=== PATIENT | male | born 1995 | race Caucasian/White ===

== ENCOUNTER 2018-11-04 22:23 | Observation (INO) | payer MEDICAID ==
[2018-11-04] MEDS ORDERED: LORAZEPAM 2 MG/ML VIAL IV ONE (22:27)
[2018-11-04] MEDS ORDERED: 0.9 % SODIUM CHLORIDE 1000ML 1,000 ML IV SCH (22:30)
--- NOTE | 2018-11-04 22:32 | Emergency Department Record ---
History of Present Illness - General Chief Complaint: Chest Pain Time Seen by Provider: 11/04/18 22:26 Source: Patient Mode of Arrival: Ambulatory Limitations: No limitations - History of Present Illness Initial Comments: 23 yo male presents to ED for evaluation of chest pain that has progressively worsened, reports the pain has been there for "about a year". Patient reports history of alcohol abuse, reports that he stopped drinking yesterday. Patient reports that his creative developer told him that his symptoms were related to his lungs, recommended anti-inflammatories for his symptoms. Patient denies fevers , chills, or recent illness. Patient denies health problems at his baseline. MD Complaint: Chest pain Onset/Timin -: Year(s) Pain Location: Substernal Severity: Moderate Quality: Aching Consistency: Constant Improves With: Nothing Worsens With: Nothing Treatments Prior to Arrival: None - Related Data Home Medications Medication Instructions Recorded Confirmed Last Taken Metoprolol Succinate 25 mg PO DAILY 11/04/18 11/04/18 11/04/18 Paroxetine HCl [Paxil] 20 mg PO DAILY 11/04/18 11/04/18 11/04/18 Allergies Allergy/AdvReac Type Severity Reaction Status Date / Time No Known Drug Allergies Allergy Verified 11/04/18 22:35 Review of Systems Constitutional: Denies: Chills, Fever, Malaise, Night sweats Eyes: Denies: Eye discharge, Eye pain ENT: Denies: Congestion, Ear pain, Epistaxis Respiratory: Denies: Cough, Dyspnea Cardiovascular: Reports: Chest pain. Denies: Dyspnea on exertion Endocrine: Denies: Fatigue, Heat or cold intolerance Gastrointestinal: Denies: Abdominal pain, Nausea, Vomiting Genitourinary: Denies: Incontinence, Retention Musculoskeletal: Denies: Arthralgia, Back pain Skin: Denies: Bruising, Change in color, Change in hair/nails Neurological: Denies: Abnormal gait, Confusion, Headache, Seizure Psychiatric: Reports: Anxiety Hematological/Lymphatic: Denies: Anemia, Blood Clots Physical Exam - General General Appearance: Alert, Oriented x3, Cooperative, Moderate distress, Anxious , Other (Patient appears tremulous, anxious, c/w ETOH withdrawal) Limitations: No limitations - Head Head exam: Atraumatic, Normocephalic, Normal inspection Head exam detail: negative: Abrasion, Contusion, Villalta's sign, General tenderness, Hematoma, Laceration - Eye Eye exam: Normal appearance. negative: Conjunctival injection, Periorbital swelling, Periorbital tenderness, Scleral icterus - ENT Ear exam: negative: Auricular hematoma, Auricular trauma Nasal Exam: negative: Active bleeding, Discharge, Dried blood, Foreign body Mouth exam: negative: Drooling, Laceration, Muffled voice, Tongue elevation - Neck Neck exam: Normal inspection. negative: Meningismus, Tenderness - Respiratory Respiratory exam: Normal lung sounds bilaterally. negative: Rales, Respiratory distress, Rhonchi, Stridor - Cardiovascular Cardiovascular Exam: Regular rate, Normal rhythm, Normal heart sounds - GI/Abdominal GI/Abdominal exam: Soft. negative: Rebound, Rigid, Tenderness - Rectal Rectal exam: Deferred - exam: Deferred - Extremities Extremities exam: Normal inspection. negative: Pedal edema, Tenderness - Back Back exam: Denies: CVA tenderness (R), CVA tenderness (L) - Neurological Neurological exam: Alert, Normal gait, Oriented X3 - Psychiatric Psychiatric exam: Anxious - Skin Skin exam: Normal color. negative: Abrasion Type of lesion: negative: abrasion Course - Reevaluation(s) Reevaluation #1: 11/04/18 22:39 EKG: NSR 92 Indeterminate axis No acute ST-T wave changes Reevaluation #2: 11/04/18 23:13 Laboratory studies were reviewed and are grossly unremarkable except for the following: AST 148 ALT 193 Potassium 3.3. Will obtain CT imaging of the chest for further evaluation of the patient's chest pain symptoms. Reevaluation #3: 11/05/18 00:34 CT Chest: No acute process Hepatic steatosis Patient was updated on all results, will admit for alcohol withdrawal and likely 2-D echo in AM. Patient is in agreement with the plan of care as discussed. Reevaluation #4: 11/05/18 06:53 Case was discussed with Mary Mayfield NP, will accept admission at this time. Medical Decision Making - Lab Data Result diagrams: 11/04/18 22:30 11/04/18 22:30 Disposition Disposition: Admit Clinical Impression: Chest pain Qualifiers: Chest pain type: unspecified Qualified Code(s): R07.9 - Chest pain, unspecified Alcohol withdrawal Qualifiers: Complication of substance-induced condition: uncomplicated Qualified Code(s): F10.230 - Alcohol dependence with withdrawal, uncomplicated Disposition: Still a Patient at [facility] Decision to Admit: Admit from ER Decision to Admit Date: 11/05/18 Decision to Admit Time: 00:36 Condition: (2) Stable Time of Disposition: 00:36 Quality - Quality Measures Quality Measures: N/A - Blood Pressure Screening Does Patient Have Any of the Following: No Blood Pressure Classification: Pre-Hypertensive BP Reading Systolic Measurement: 129 Diastolic Measurement: 86 Screening for High Blood Pressure: < Pre-Hypertensive BP, F/U Documented > [ G8950] Pre-Hypertensive Follow-up Interventions: Referral to alternative/primary care provider.
[2018-11-04 22:54] LABS: BASO % 0.5 % (0-6); EOS % 0.5 % (0-6); GRAN % 67.8 % (47-80); HEMATOCRIT 47.9 % (42.0-52.0); HEMOGLOBIN 17.4 gm/dl (14.0-18.0); LYMPH % 24.1 % (16-45); MEAN CELL VOLUME 86.6 fl (81-97); MEAN CORPUSCULAR HEMOGLOBIN 31.5 pg (27-33); MEAN CORPUSCULAR HGB CONC 36.3 g/dl (32-36); MEAN PLATELET VOLUME 10.7 fl (7.4-10.4); MONO % 7.1 % (0-9); PLATELET COUNT 287 K/uL (130-400); RED BLOOD COUNT 5.53 M/uL (4.40-5.70); RED CELL DISTRIBUTION WIDTH 11.8 % (11.5-14.5)
[2018-11-04 22:57] LABS: BLOOD UREA NITROGEN 10 mg/dL (6-20); CREATININE 0.8 mg/dL (0.7-1.2); EST GLOMERULAR FILTRATION RATE > 60 mL/min
[2018-11-04 22:58] LABS: TOTAL PROTEIN 8.3 g/dL (6.6-8.7)
[2018-11-04 23:00] LABS: GLUCOSE,RANDOM 118 mg/dL (74-109)
[2018-11-04 23:03] LABS: ALB/GLOB RATIO 1.6 (1.1-1.8); ALBUMIN 5.1 g/dL (4.0-5.0); ALKALINE PHOSPHATASE 99 U/L (40-129); ALT/SGPT 193 U/L (<41); AST/SGOT 148 U/L (10.0-50.0)
[2018-11-05] MEDS ORDERED: KETOROLAC 30 MG/ML VIAL IVP ONE (00:17)
[2018-11-05] MEDS ORDERED: LORAZEPAM 2 MG/ML VIAL IV ONE (00:39)
[2018-11-05] MEDS: LORAZEPAM 2 MG/ML VIAL IV PRN ×8 (03:13→23:14)
[2018-11-05] MEDS: 0.9 % SODIUM CHLORIDE 1000ML 1,000 ML IV PRN ×2 (08:49→17:14)
[2018-11-05] MEDS: METOPROLOL SUCC 25 MG TAB.ER PO SCH (10:09)
--- NOTE | 2018-11-05 10:14 | History & Physical ---
History of Present Illness - Date of Service Date of Service for History & Physical: 11/06/18 - History of Present Illness Admitting Diagnosis: Alcohol withdrawal. Chest pain History of Present Illness: Uri Mckeon is a 23 y.o. M who presented to the ED with c/o worsening CP that has been going on x 1 year. Sees SHABBIR Dumas @ [facility]. Was told that his CP was d/t a "lung issue" and to take NSAIDS. Has been taking Motrin 600mg TID x several weeks. Drinks Fifth of hard liquor daily x 3 years. Reports that he had an ECHO 1.5 years ago and that he has had an upper scope in the past. Denies ever having had a stress test. ED Course: AST/ALT elevated EKG NSR CTA Chest: Negative for acute process 11/05/18 1030 Vitals: BP 118/64, HR 76, T98.1, RR 16, SpO2 99% on RA Lying in bed with lights off. Reports feeling tremors and agitated. Reports midsternal CP that radiates to left mid axillary line. Reports that he has vomited blood recently. Denies pain. Travel Screening - Travel/Exposure Within Last 30 Days Have you traveled within the last 30 days?: No - Travel/Exposure Within Last Year Have you traveled outside the [place] in the last year?: No - Additonal Travel Details Have you been exposed to anyone with a communicable illness?: No - Travel Symptoms Symptom Screening: None Review of Systems Reviewed: No additional complaints except as noted below Constitutional: Denies: Chills, Fever, Malaise, Night sweats Eyes: Denies: Eye discharge, Eye pain ENT: Denies: Congestion, Ear pain, Epistaxis Respiratory: Denies: Cough, Dyspnea Cardiovascular: Reports: Chest pain. Denies: Dyspnea on exertion Endocrine: Denies: Fatigue, Heat or cold intolerance Gastrointestinal: Denies: Abdominal pain, Nausea, Vomiting Genitourinary: Denies: Incontinence, Retention Musculoskeletal: Denies: Arthralgia, Back pain Skin: Denies: Bruising, Change in color, Change in hair/nails Neurological: Denies: Abnormal gait, Confusion, Headache, Seizure Psychiatric: Reports: Anxiety Hematological/Lymphatic: Denies: Anemia, Blood Clots Past Medical History - SOCIAL HISTORY Smoking Status: Never smoker Alcohol Use: Heavy Drug Use Detail:: Marijuana - RESPIRATORY Hx Respiratory Disorders: No - CARDIOVASCULAR Hx Cardio Disorders: Yes Hx Hypertension: Yes - NEURO Hx Neuro Disorders: Yes Hx Dizziness: Yes - GI Hx GI Disorders: Yes Hx Abdominal Pain: Yes Hx Liver Disease: Yes - Hx Genitourinary Disorders: No - ENDOCRINE Hx Endocrine Disorders: No - MUSCULOSKELETAL Hx Musculoskeletal Disorders: No - PSYCH Hx Psych Problems: Yes Hx Anxiety: Yes Hx Depression: Yes - HEMATOLOGY/ONCOLOGY Hx Hematology/Oncology Disorders: No Family Medical History Any Significant Family History?: Yes Hx Heart Disease: Father, Grandparents Hx Seizures: Father H&P Meds/Allergies - Allergies Allergies: Allergies Allergy/AdvReac Type Severity Reaction Status Date / Time No Known Drug Allergies Allergy Verified 11/04/18 22:35 - Home Medications Home Medications Medication Instructions Recorded Confirmed Last Taken Metoprolol Succinate 25 mg PO DAILY 11/04/18 11/04/18 11/04/18 Paroxetine HCl [Paxil] 20 mg PO DAILY 11/04/18 11/04/18 11/04/18 - Active Medications Active Medications: Current Medications Sodium Chloride () 1,000 mls @ 125 mls/hr IV .Q8H PRN PRN Reason: LARGE VOLUME IV Last Admin: 11/05/18 08:49 Dose: 125 mls/hr Lorazepam (Ativan) 2 mg IV Q2H PRN PRN Reason: ANXIETY Last Admin: 11/05/18 08:43 Dose: 2 mg Metoprolol Succinate (Toprol Xl) 25 mg PO DAILY [facility] Last Admin: 11/05/18 10:09 Dose: 25 mg Paroxetine HCl (Paxil) 20 mg PO QHS [facility] Physical Exam - Vital Signs Vital Signs: Vital Signs - Last 24 Hrs Temp Pulse Pulse Resp BP BP Pulse Ox 11/05/18 04:00 78 18 130/91 95 11/05/18 01:40 98.3 F 81 20 141/87 96 11/05/18 01:10 91 H 18 129/86 98 11/05/18 00:17 91 H 18 129/86 95 11/04/18 23:18 98.6 F 89 18 127/87 95 11/04/18 22:52 88 22 139/87 95 11/04/18 22:27 97.9 F 113 H 24 146/102 95 - General General Appearance: Alert, Oriented x3, Cooperative, Mild distress, Anxious, Other (Patient appears tremulous, anxious, c/w ETOH withdrawal) Limitations: No limitations - Head Head exam: Atraumatic, Normocephalic, Normal inspection Head exam detail: negative: Abrasion, Contusion, Villalta's sign, General tenderness, Hematoma, Laceration - Eye Eye exam: Normal appearance. negative: Conjunctival injection, Periorbital swelling, Periorbital tenderness, Scleral icterus - ENT Ear exam: negative: Auricular hematoma, Auricular trauma Nasal Exam: negative: Active bleeding, Discharge, Dried blood, Foreign body Mouth exam: negative: Drooling, Laceration, Muffled voice, Tongue elevation - Neck Neck exam: Normal inspection. negative: Meningismus, Tenderness - Respiratory Respiratory exam: Normal lung sounds bilaterally. negative: Rales, Respiratory distress, Rhonchi, Stridor - Cardiovascular Cardiovascular Exam: Regular rate, Normal rhythm, Normal heart sounds - GI/Abdominal GI/Abdominal exam: Soft. negative: Rebound, Rigid, Tenderness - Rectal Rectal exam: Deferred - exam: Deferred - Extremities Extremities exam: Normal inspection. negative: Pedal edema, Tenderness - Back Back exam: Denies: CVA tenderness (R), CVA tenderness (L) - Neurological Neurological exam: Alert, Normal gait, Oriented X3 - Psychiatric Psychiatric exam: Anxious - Skin Skin exam: Normal color. negative: Abrasion Type of lesion: negative: abrasion Results - Labs Result Diagrams: 11/04/18 22:30 11/04/18 22:30 Labs Last 24 Hours: Laboratory Results - last 24 hr 11/04/18 11/04/18 22:30 22:30 WBC 8.0 RBC 5.53 Hgb 17.4 Hct 47.9 MCV 86.6 MCH 31.5 MCHC 36.3 H RDW 11.8 Plt Count 287 MPV 10.7 H Gran % 67.8 Lymphocytes % 24.1 Monocytes % 7.1 Eosinophils % 0.5 Basophils % 0.5 Sodium 139 Potassium 3.3 L Chloride 98 Carbon Dioxide 22.0 Anion Gap 19.0 H BUN 10 Creatinine 0.8 Estimated GFR > 60 Random Glucose 118 H Calcium 9.7 Total Bilirubin 1.00 AST 148 H ALT 193 H Alkaline Phosphatase 99 Troponin T < 0.010 Total Protein 8.3 Albumin 5.1 H Globulin 3.2 Albumin/Globulin Ratio 1.6 VTE H&P Assessment - Risk for VTE Risk for VTE: No Risk Level: Low Risk Assessment Date: 11/05/18 Risk Assessment Time: 11:00 VTE Orders Placed or Will Be Placed: Yes Plan - Detailed Diagnosis and Plan (1) Chest pain Current Visit: Yes Status: Acute Qualifiers: Chest pain type: unspecified Qualified Code(s): R07.9 - Chest pain, unspecified Base Code: R07.9 - CHEST PAIN, UNSPECIFIED Comment: 11/05/18 -Had normal ECHO 1.5 years ago, follows with [facility] -EKG NSR -Likely GI r/t NSAID overuse and Alcohol abuse AEB recent hematemesis -Ordered 2D echo -IV Protonix 40mg BID, Carafate 1 gm QID for possibility of Ulcers (2) Alcohol withdrawal Current Visit: Yes Status: Acute Qualifiers: Complication of substance-induced condition: uncomplicated Qualified Code(s ): F10.230 - Alcohol dependence with withdrawal, uncomplicated Base Code: F10.239 - ALCOHOL DEPENDENCE WITH WITHDRAWAL, UNSPECIFIED Comment: 11/05/18 -Drinks Fifth hard liquor daily x 3 years -Liver enzymes elevated, AST 148/ALT 193 -CIWA score 10-11 -Added Librium 50mg q. 8 PRN -IVF and vitamins ordered (3) Full code status Current Visit: Yes Status: Acute Base Code: Z78.9 - OTHER SPECIFIED HEALTH STATUS Comment: 11/05/18 -Full code this admission (4) DVT prophylaxis Current Visit: Yes Status: Acute Base Code: [id number] - Comment: 11/05/18 -Low risk -Nursing to encourage ambulation
[2018-11-05] MEDS: PANTOPRAZOLE SODIUM IV 40 MG VIAL IVP SCH ×2 (10:30→23:03)
[2018-11-05] MEDS: SUCRALFATE 1 G/10 ML UD PO SCH ×4 (10:47→23:03)
--- NOTE | 2018-11-05 13:14 | CT ANGIOGRAM REPORT ---
EXAM: CT ANGIOGRAM OF THE CHEST WITH CONTRAST HISTORY: LEFT SIDED CHEST PAIN AND SHORTNESS OF BREATH FOR TWO MONTHS. TECHNIQUE: Routine CTA examination of the chest was performed with 90 ml of Omnipaque 350 utilized. Maximum intensity projection reformatted images are generated in multiple planes and reviewed. FINDINGS: Evaluation of the peripheral pulmonary arteries is limited by suboptimal opacification. No large central pulmonary embolus is seen. The heart is not enlarged. The aortic root at the level of the sinuses of Valsalva measures 3.9 x 3.8 cm. The sinotubular junction measures 2.3 cm in [id number] and the ascending thoracic aorta at the level of the right main pulmonary artery measures 3 cm in diameter. No thoracic aortic dissection. There is likely a small amount of residual thymic tissue. No mediastinal or hilar mass/ lymphadenopathy is seen. The central airways are clear. There is minor dependent atelectasis within the lower lobes. There is linear scarring versus atelectasis within the medial segment of the right middle lobe. The lungs and pleural spaces are otherwise clear. There is diffuse decreased density of the liver relative to the spleen consistent with steatosis. The adrenal glands are not enlarged though the inferior aspect of the left adrenal gland is not entirely included on examination. No lytic or blastic bone lesion. IMPRESSION: 1. NO EVIDENCE OF CENTRAL PULMONARY EMBOLISM. EVALUATION OF THE PERIPHERAL PULMONARY ARTERIES IS SUBOPTIMAL DUE TO POOR CONTRAST OPACIFICATION. 2. NO ANEURYSMAL DILATATION OF THE THORACIC AORTA NOR DISSECTION THOUGH THE AORTIC ROOT IS MILDLY ECTATIC MEASURING 3.9 CM IN DIAMETER. 3. MILD DEPENDENT ATELECTASIS IN EACH LUNG BASE. LINEAR SCARRING VERSUS ATELECTASIS WITHIN THE RIGHT MIDDLE LOBE. 4. HEPATIC STEATOSIS. JOB NUMBER: [id number] [facility]
[2018-11-05] MEDS: NICOTINE14 MG/24 HOUR PATCH TD SCH (18:47)
[2018-11-05] MEDS: CHLORDIAZEPOXIDE 25 MG CAPSULE PO PRN (20:24)
[2018-11-05] MEDS ORDERED: PAROXETINE HCL 10 MG TABLET PO SCH (22:00)
[2018-11-06] MEDS: LORAZEPAM 2 MG/ML VIAL IV PRN ×4 (01:48→09:28)
[2018-11-06] MEDS: 0.9 % SODIUM CHLORIDE 1000ML 1,000 ML IV PRN ×2 (01:52→09:35)
[2018-11-06] MEDS: CHLORDIAZEPOXIDE 25 MG CAPSULE PO PRN ×2 (05:08→12:07)
[2018-11-06] MEDS ORDERED: ONDANSETRON HCL IV 4 MG/2 ML VIAL IVP ONE (05:11)
[2018-11-06] MEDS: SUCRALFATE 1 G/10 ML UD PO SCH ×2 (09:28→14:08)
[2018-11-06] MEDS: NICOTINE14 MG/24 HOUR PATCH TD SCH (09:28)
[2018-11-06] MEDS: PANTOPRAZOLE SODIUM IV 40 MG VIAL IVP SCH (09:28)
[2018-11-06] MEDS: METOPROLOL SUCC 25 MG TAB.ER PO SCH (09:28)
--- NOTE | 2018-11-06 17:19 | Discharge Summary ---
Providers Discharge Summary Date: 11/06/18 Date of admission: 11/06/18 05:43 Attending physician: BRUCE COREA Physical Exam - Vital Signs Vital Signs: Vital Signs - Last 24 Hrs Temp Pulse Resp BP BP Pulse Ox 11/06/18 12:00 97.4 F L 65 16 122/79 97 11/06/18 10:00 97.3 F L 66 16 119/77 97 11/06/18 07:52 20 11/06/18 05:07 97.9 F 78 20 168/109 98 11/06/18 04:30 98.0 F 80 18 135/84 99 11/05/18 23:57 97.9 F 60 18 132/86 96 11/05/18 20:00 98.3 F 75 18 136/84 95 - General General Appearance: Alert, Oriented x3, Cooperative, No acute distress, Other Limitations: No limitations - Head Head exam: Atraumatic, Normocephalic, Normal inspection Head exam detail: negative: Abrasion, Contusion, Villalta's sign, General tenderness, Hematoma, Laceration - Eye Eye exam: Normal appearance. negative: Conjunctival injection, Periorbital swelling, Periorbital tenderness, Scleral icterus - ENT Ear exam: negative: Auricular hematoma, Auricular trauma Nasal Exam: negative: Active bleeding, Discharge, Dried blood, Foreign body Mouth exam: negative: Drooling, Laceration, Muffled voice, Tongue elevation - Neck Neck exam: Normal inspection. negative: Meningismus, Tenderness - Respiratory Respiratory exam: Normal lung sounds bilaterally. negative: Rales, Respiratory distress, Rhonchi, Stridor - Cardiovascular Cardiovascular Exam: Regular rate - GI/Abdominal GI/Abdominal exam: Soft. negative: Rebound, Rigid, Tenderness - Rectal Rectal exam: Deferred - exam: Deferred - Extremities Extremities exam: Normal inspection. negative: Pedal edema, Tenderness - Back Back exam: Denies: CVA tenderness (R), CVA tenderness (L) - Neurological Neurological exam: Alert, Normal gait, Oriented X3 - Psychiatric Psychiatric exam: Anxious - Skin Skin exam: Normal color. negative: Abrasion Type of lesion: negative: abrasion Hospitalization - Hospitalization Admission Diagnosis: Alcohol withdrawal. Chest pain - Problem List/Discharge Diagnosis (1) Chest pain Status: Acute Discharge Diagnosis: Chest pain type: unspecified Qualified Code(s): R07.9 - Chest pain, unspecified Base Code: R07.9 - CHEST PAIN, UNSPECIFIED Comment: 11/06/18 -2D Echo completed -Chest discomfort likely GI -Pt to f/u in office for outpatient testing, consider EGD -Omeprazole 40mg PO BID -Carafate 1gm PO QID -Instructed to avoid NSAIDS (2) Alcohol withdrawal Status: Acute Discharge Diagnosis: Complication of substance-induced condition: uncomplicated Qualified Code(s ): F10.230 - Alcohol dependence with withdrawal, uncomplicated Base Code: F10.239 - ALCOHOL DEPENDENCE WITH WITHDRAWAL, UNSPECIFIED Comment: 11/06/18 -Drinks Fifth hard liquor daily x 3 years -Liver enzymes elevated, AST 148/ALT 193 -CIWA score 5 (3) Full code status Status: Acute Base Code: Z78.9 - OTHER SPECIFIED HEALTH STATUS Comment: 11/06 -Full code this admission (4) DVT prophylaxis Status: Acute Base Code: [id number] - Comment: 11/06/18 -Low risk -Nursing to encourage ambulation - Hospitalization Course Disposition: Home, Self-Care Hospital Course: Uri Mckeon is a 23 y.o. M who presented to the ED with c/o worsening CP that has been going on x 1 year. Sees SHABBIR Dumas @ [facility]. Was told that his CP was d/t a "lung issue" and to take NSAIDS. Has been taking Motrin 600mg TID x several weeks. Drinks Fifth of hard liquor daily x 3 years. Reports that he had an ECHO 1.5 years ago and that he has had an upper scope in the past. Denies ever having had a stress test. ED Course: AST/ALT elevated EKG NSR CTA Chest: Negative for acute process 11/05/18 1030 Vitals: BP 118/64, HR 76, T98.1, RR 16, SpO2 99% on RA Lying in bed with lights off. Reports feeling tremors and agitated. Reports midsternal CP that radiates to left mid axillary line. Reports that he has vomited blood recently. Denies pain. 11/06/18 1645 Vitals: T 97.4, HR 65, BP 122/79, RR 16, SpO2 97% RA Lying in bed. Arouses easily when spoken to. Reports that he is ready to go home. Doesn't feel agitated anymore. Reports chest pain is very slightly improved. Verbalizes understanding of f/u in office for further testing. Procedures: Imaging and X-Rays 11/04/18 23:12 CHEST CTA w contrast [CTA] Stat Cardiology Procedures 11/04/18 22:27 EKG NOW 11/05/18 08:54 Echo W/CF & Cardiac Doppler NOW Abnormal Labs: Abnormal Lab Results 11/04/18 11/04/18 Range/Units 22:30 22:30 MCHC 36.3 H (32-36) g/dl MPV 10.7 H (7.4-10.4) fl Potassium 3.3 L (3.4-4.5) mmol/L Anion Gap 19.0 H (7-16) Random Glucose 118 H (74-109) mg/dL AST 148 H (10.0-50.0) U/L ALT 193 H (<41) U/L Albumin 5.1 H (4.0-5.0) g/dL Condition at Discharge: (2) Stable Discharge Medications - Discharge Medications Prescriptions: Omeprazole 40 mg PO BID 30 Days #60 capsule. Sucralfate [Carafate] 1 g PO QID 10 Days #40 ud Home Medications: Ambulatory Orders Metoprolol Succinate 25 mg PO DAILY 11/04/18 [Last Taken 11/04/18] Paroxetine HCl [Paxil] 20 mg PO DAILY 11/04/18 [Last Taken 11/04/18] Omeprazole 40 mg PO BID 30 Days #60 capsule. 11/06/18 [Last Taken Unknown] Sucralfate [Carafate] 1 g PO QID 10 Days #40 ud 11/06/18 [Last Taken Unknown] Discharge Plan - Discharge Instructions Activity at Discharge: Increase Activity as Tolerated Diet at Discharge: Advance to Usual Diet Instructions: Chest Pain (DC), Alcohol Withdrawal (DC), Alcohol Dependence (GEN ), Alcohol Use Disorder (DC) Additional Instructions: Appointment with Mary Mayfield at [facility] on November 10 at 9:40AM Resume home meds Diet and activity as tolerated. Return to the ED if getting worse Do not drink alcohol Quality Measures - Quality Measures Quality Measures: Documentation of Current Medications in Medical Record, Screening for High Blood Pressure and F/U Documented - Current Medications Quality Measure: Measure #130: Documentation of Current Medications Documentation of Current Medications: <Current Medications Documented/Reviewed> [G8427] - Blood Pressure Screening Quality Measure: Screening for High Blood Pressure and Follow-Up Documented Does Patient Have Any of the Following: No Blood Pressure Classification: Normal BP Reading Systolic Measurement: 118 Diastolic Measurement: 64 Screening for High Blood Pressure: < Normal BP, F/U Not Required > [G8783] - Elder Abuse Suspicion Index EASI Reference Information: Gabbie DRAKE, Obie C, Tio Mccauley, Jessica Moctezuma.Development and validation of a tool to assist physicians identification of elder abuse: The Elder Abuse Suspicion Index (EASI ). Journal of Elder Abuse and Neglect, 2008; 20 (3): 276-300.
== END 2018-11-06 17:45 | disposition home or self-care (01) ==
LOC: ER 22:23 → MEDSURG 11-05 01:05 → INTOOBSV 11-05 01:05 → UNDOADMOB 11-05 01:05 → MEDSURG 11-05 01:20 → UNDOADMOB 11-06 05:43 → UNDODISOB 11-06 17:45
PROVIDERS: ADMIT Internal Medicine; ATTEND Internal Medicine
DX: F10.239 Alcohol dependence with withdrawal, unspecified (principal); I10 Essential (primary) hypertension; K76.9 Liver disease, unspecified; F12.90 Cannabis use, unspecified, uncomplicated
CPT/HCPCS: 99285 ×2; 96376; 96374; 96375; 85025; 80053; 84484; 71275; 93005; 93010; 93306; G0378 ×2; Q9967; J1885; J2405; J2060 ×3; 99220; C9113; J7030

== ENCOUNTER 2018-12-25 08:49 | Day surgery (SDC) | payer MEDICAID ==
[2018-12-25] MEDS ORDERED: LIDOCAINE 2% MDV (20MG/ML) 20ML VIAL IV ONE (08:50)
[2018-12-25] MEDS ORDERED: PROPOFOL 10 MG/ML VIAL IV ONE (08:50)
[2018-12-25] MEDS ORDERED: FENTANYL PF 100MCG/2ML VIAL IV ONE (08:50)
--- NOTE | 2018-12-28 08:11 | Operative Note ---
SURGEON: Neftaly Genao MD OPERATION: 1. ESOPHAGOGASTRODUODENOSCOPY. 2. COLONOSCOPY. INDICATIONS: This is a 23-year-old man with history of right upper quadrant abdominal pain with no history of diarrhea who presented for both esophagogastroduodenoscopy and colonoscopy. POSTOPERATIVE DIAGNOSES: 1. Grade 2 ulcerative esophagitis. 2. Mild colon. ANESTHESIA: Sedation is per Anesthesia. Pulse oximetry was monitored throughout the procedure to maintain O2 saturation of 90% or greater. Supplemental oxygen was administered via nasal cannula. Cardiac and vital signs were monitored throughout the duration of the procedure, and they were stable. The procedures of esophagogastroduodenoscopy and colonoscopy and risks and benefits of the procedures, including the risk of bleeding and perforation, among others, were explained to the patient who voiced understanding and agreed to have the procedures done. Physical examination was performed, and the patient was found stable for sedation. PROCEDURE: The patient was placed in the left lateral position. Sedation was initiated. A plastic bite block was inserted into the oral cavity. The Olympus [id number] gastroscope was introduced into the oral cavity and advanced to the proximal esophagus without difficulty. The esophageal mucosa was carefully examined upon introduction of the gastroscope. The proximal and mid esophageal mucosa appeared normal. In the distal esophagus, there was grade 2 esophagitis with no mass lesions noted. The gastroscope was then advanced into the stomach, and surveillance of the stomach revealed normal gastric fundus, body, and antrum. The gastroscope was subsequently advanced to the descending duodenum without difficulty. The duodenal bulb and descending duodenum appeared normal. The gastroscope was then withdrawn into the stomach and retroflexion was performed. There were no other lesions noted. The gastroscope was then straightened and withdrawn while carefully examining the gastric and esophageal mucosa. No other lesions noted. Multiple distal esophageal biopsies were obtained. The patient remained with stable vital signs and was repositioned for colonoscopy. A digital rectal exam was performed and showed some mild external hemorrhoids with no palpable rectal masses. An Olympus [id number]-180AL colonoscope was then inserted into the rectum under direct visualization. It was advanced to the cecum without difficulty. The ileocecal valve and appendiceal orifice were identified and photographed. The colonic mucosa was carefully examined upon introduction of the colonoscope. There were no lesions noted. The ileocecal valve was intubated and terminal ileal mucosa was inspected for about 10 cm and it appeared normal. The colonoscope was then withdrawn while carefully examining the colonic mucosal surfaces. No other lesions were noted. In the rectum, retroflexion was performed and it was normal. The colonoscope was then withdrawn and the procedure was terminated. The patient tolerated the procedure well without any immediate complications. The patient remained with stable vital signs and was transferred to the recovery room. RECOMMENDATIONS: 1. I will start him on omeprazole 20 mg daily. 2. I will see him back in the office as needed. Thank you for allowing me to participate in the care of your patient. CC: OC Kirby
== END 2018-12-25 10:45 | disposition home or self-care (01) ==
LOC: HOP 08:49
PROVIDERS: ATTEND Internal Medicine Gastroenterology
DX: Z12.11 Encounter for screening for malignant neoplasm of colon (principal); K21.0 Gastro-esophageal reflux disease with esophagitis; Z87.898 Personal history of other specified conditions
CPT/HCPCS: 00813; 43239; G0121

== ENCOUNTER 2019-02-22 08:51 | Emergency (ER) | payer MEDICAID ==
[2019-02-22] MEDS ORDERED: ORPHENADRINE CITRATE 60MG/2ML VIAL IM ONE (08:56)
[2019-02-22] MEDS ORDERED: KETOROLAC 30 MG/ML VIAL IM ONE (08:56)
[2019-02-22] MEDS ORDERED: ACETAMINOPHEN 500 MG TABLET PO ONE (08:57)
--- NOTE | 2019-02-22 09:02 | Emergency Department Record ---
History of Present Illness - General Chief Complaint: Back Pain/Injury Stated Complaint: BACK INJURY Time Seen by Provider: 02/22/19 08:56 Source: Patient Mode of Arrival: Ambulatory Limitations: No limitations - History of Present Illness Initial Comments: 23 yo male presents from his place of employment after injuring his back. He was removing a semi truck tire. He first used a sledge hammer then was pulling and kicking the tire. He felt a sharp pain in the right lower back at 7:30am. The pain has continued. It is sharp. He has some pain down the right leg. No numbness or tingling. No weakness. No history of back disease in the past or lumbar disc disease. MD Complaint: Back injury -: Hour(s) (1.5) Place: Work Radiation: Right leg Severity: Moderate Quality: Stabbing Consistency: Constant Improves With: Immobilization Worsens With: Movement, Walking Context: Bending, Turning/twisting, While lifting, Other (Removing a semi truck tire) Associated Symptoms: Denies other symptoms - Related Data Previous Rx's Medication Instructions Recorded Cyclobenzaprine HCl [Flexeril] 10 mg PO TID #20 tablet 02/22/19 Ibuprofen [Motrin 600Mg] 600 mg PO Q6H #20 tablet 02/22/19 Allergies Allergy/AdvReac Type Severity Reaction Status Date / Time No Known Drug Allergies Allergy Verified 02/22/19 09:01 Review of Systems Constitutional: Denies: Chills, Fever, Malaise, Weakness Eyes: Denies: Eye discharge ENT: Denies: Congestion, Throat pain Respiratory: Denies: Cough Cardiovascular: Denies: Chest pain, Syncope Endocrine: Denies: Fatigue Gastrointestinal: Denies: Abdominal pain, Diarrhea, Nausea, Vomiting Genitourinary: Denies: Dysuria, Frequency, Hematuria, Urgency Musculoskeletal: Reports: Back pain, Myalgia. Denies: Arthralgia Skin: Denies: Bruising, Change in color, Rash Neurological: Denies: Abnormal gait, Headache, Numbness, Tingling, Tremors, Weakness Psychiatric: Denies: Anxiety Hematological/Lymphatic: Denies: Easy bleeding, Easy bruising Past Medical History - SOCIAL HISTORY Smoking Status: Former smoker - RESPIRATORY Hx Respiratory Disorders: No - CARDIOVASCULAR Hx Cardio Disorders: Yes Hx Hypertension: Yes Hx Palpitations: Yes - NEURO Hx Neuro Disorders: Yes Hx Dizziness: Yes - GI Hx GI Disorders: Yes Hx Abdominal Pain: Yes (left side) Hx Liver Disease: Yes Comment:: vomitted large amount of blood about 1 yr ago (ER visit) - Hx Genitourinary Disorders: No - ENDOCRINE Hx Endocrine Disorders: No - MUSCULOSKELETAL Hx Musculoskeletal Disorders: No - PSYCH Hx Psych Problems: Yes Hx Anxiety: Yes Hx Depression: Yes - HEMATOLOGY/ONCOLOGY Hx Hematology/Oncology Disorders: No Family Medical History Hx Heart Disease: Father, Grandparents Hx Seizures: Father Physical Exam - General General Appearance: Alert, Oriented x3, Cooperative, No acute distress Limitations: No limitations - Head Head exam: Atraumatic, Normal inspection - Eye Eye exam: Normal appearance. negative: Conjunctival injection - ENT ENT exam: Normal exam, Mucous membranes moist Ear exam: Normal external inspection Nasal Exam: Normal inspection Mouth exam: Normal external inspection - Neck Neck exam: Normal inspection - Respiratory Respiratory exam: Normal lung sounds bilaterally. negative: Respiratory distress - Cardiovascular Cardiovascular Exam: Regular rate, Normal rhythm, Normal heart sounds - GI/Abdominal GI/Abdominal exam: Soft. negative: Tenderness - Rectal Rectal exam: Deferred - exam: Deferred - Extremities Extremities exam: Normal inspection, Full ROM, Normal capillary refill. negative: Calf tenderness, Pedal edema, Tenderness - Back Back exam: Reports: Normal inspection, CVA tenderness (R), Muscle spasm, Paraspinal tenderness, Tenderness Image of Body Front/Back: 1 - tender R paraspinal, no rash, no step off, Reflexes symmetric patellar R and L, sensation is intact, No weakness of leg flexion at the hip or knee, foot flexion and extension intact - Neurological Neurological exam: Alert, Normal gait, Oriented X3, Reflexes normal. negative: Altered, Motor sensory deficit - Psychiatric Psychiatric exam: Normal affect, Normal mood - Skin Skin exam: Dry, Intact, Normal color, Warm Course - Reevaluation(s) Reevaluation #1: 02/22/19 09:35 The XR was reviewed No acute bony abnormality We discuss that pain down the leg can be a disc issue He is to call his PCP for follow up or his work health since it occurred at work If the pain continues I recommend to be seen for possible further work up We discussed signs and symptoms that should prompt him to immediately return as well (weak, numb, changes in bowel or bladder function) Disposition Disposition: Discharge Clinical Impression: Lumbar spine strain Qualifiers: Encounter type: initial encounter Qualified Code(s): S39.012A - Strain of muscle, fascia and tendon of lower back, initial encounter Sciatica Qualifiers: Laterality: right Qualified Code(s): M54.31 - Sciatica, right side Disposition: Home, Self-Care Condition: (1) Good Instructions: Low Back Strain (ED) Additional Instructions: Call your doctor for the next available follow up appointment Review this ER visit and the tests performed with your family doctor Return to the ER for a recheck if worse, any new concerns or questions If you pain down the leg continues your doctor may need to consider and MRI for a bulging disc in your back Take the prescriptions provided as directed Prescriptions: Cyclobenzaprine HCl [Flexeril] 10 mg PO TID #20 tablet Ibuprofen [Motrin 600Mg] 600 mg PO Q6H #20 tablet Forms: Patient Portal Access Time of Disposition: 09:37 Quality - Quality Measures Quality Measures: N/A - Blood Pressure Screening Does Patient Have Any of the Following: No Blood Pressure Classification: Hypertensive Reading Systolic Measurement: 132 Diastolic Measurement: 103 Screening for High Blood Pressure: < Pre-Hypertensive BP, F/U Documented > [G8950] Pre-Hypertensive Follow-up Interventions: Referral to alternative/primary care provider.
--- NOTE | 2019-02-24 07:56 | RADIOLOGY REPORT ---
EXAM: LUMBAR SPINE WITH OBLIQUE VIEWS HISTORY: SUDDEN ONSET OF LOWER BACK PAIN RADIATING INTO RIGHT LOWER EXTREMITY BEGINNING DURING PHYSICAL ACTIVITY. TECHNIQUE: AP, lateral and both oblique views of the lumbar spine are obtained as well as a spot lateral view of the lumbosacral junction. Comparison: CT of the abdomen with contrast dated 02/11/19. FINDINGS: There is normal bone mineralization. Five non-rib bearing lumbar type vertebra are present. The lower thoracic and upper lumbar portions of the spine are tilted leftward. This may just relate to patient positioning. The vertebral bodies are otherwise normal in alignment and height. No acute fracture. No lytic or blastic bone lesion. Minor degenerative end plate changes are scattered within the lower thoracic and lumbar portions of the spine. There is questionable minor disk space narrowing at the L3-L4 level. The facet joints are grossly maintained. IMPRESSION: 1. NO ACUTE FRACTURE NOR SUBLUXATION. 2. QUESTIONABLE MINIMAL DISK SPACE NARROWING AT THE L3-L4 LEVEL. MINOR DEGENERATIVE END PLATE CHANGES SCATTERED THROUGHOUT THE VISUALIZED SPINE. JOB NUMBER: [id number] MTDD
== END 2019-02-22 10:03 | disposition home or self-care (01) ==
LOC: ER 08:51
DX: S39.012A Strain of muscle, fascia and tendon of lower back, initial encounter (principal); M54.41 Lumbago with sciatica, right side; X50.0XXA Overexertion from strenuous movement or load, initial encounter; Y92.89 Other specified places as the place of occurrence of the external cause; Y99.0 Civilian activity done for income or pay; I10 Essential (primary) hypertension; Z87.891 Personal history of nicotine dependence
CPT/HCPCS: 72110; 96372; 99283; 99284; J1885; J2360

== ENCOUNTER 2019-04-09 19:48 | Emergency (ER) | payer MEDICAID ==
[2019-04-09] MEDS ORDERED: HYDROCODONE/APAP 7.5/325MG TABLET PO ONE (19:59)
[2019-04-09] MEDS ORDERED: IBUPROFEN 600 MG TABLET PO ONE (19:59)
[2019-04-09] MEDS ORDERED: Diph,Pert(Acell),Tet Vac 0.5 ML SYR IM ONE (19:59)
[2019-04-09] MEDS ORDERED: CEPHALEXIN 500 MG CAPSULE PO STA (20:01)
--- NOTE | 2019-04-09 20:06 | Emergency Department Record ---
History of Present Illness - General Chief complaint: Extremity Problem Time Seen by Provider: 04/09/19 19:55 Source: Patient, Family Mode of Arrival: Ambulatory Limitations: No limitations - History of Present Illness Initial comments: 23 yo male presents with left elbow and wrist pain. He slipped in the shower and landed on the elbow. He has left elbow and wrist pain. He has a small laceration to the elbow. His 5th finger felt a little tingly. His tetanus is not up to date. No other injuries. MD Complaint: Extremity pain, Joint pain -: Minutes(s) Location: Left History of Same: No -: Yes Arthralgia, Yes Myalgia Radiation: Distal Quality: Aching Consistency: Constant Improves with: Elevation, Immobilization Worsens with: Palpation, Weight bearing Associated Symptoms: Arthralgias - Related Data Home Medications Medication Instructions Recorded Confirmed Last Taken Metoprolol Succinate [Toprol Xl] 25 mg PO DAILY 04/09/19 04/09/19 04/09/19 Previous Rx's Medication Instructions Recorded Cephalexin [Keflex] 500 mg PO TID #21 cap 04/09/19 Allergies Allergy/AdvReac Type Severity Reaction Status Date / Time No Known Drug Allergies Allergy Verified 04/09/19 19:52 Review of Systems Constitutional: Denies: Chills, Fever, Malaise, Weakness Eyes: Denies: Eye discharge ENT: Denies: Congestion, Throat pain Respiratory: Denies: Cough Cardiovascular: Denies: Chest pain, Syncope Endocrine: Denies: Fatigue Gastrointestinal: Denies: Abdominal pain, Diarrhea, Nausea, Vomiting Genitourinary: Denies: Dysuria, Frequency, Hematuria Musculoskeletal: Reports: Arthralgia, Joint swelling Skin: Reports: Change in color Neurological: Denies: Numbness, Weakness Psychiatric: Denies: Anxiety Hematological/Lymphatic: Denies: Easy bleeding, Easy bruising Past Medical History - SOCIAL HISTORY Smoking Status: Former smoker - RESPIRATORY Hx Respiratory Disorders: No - CARDIOVASCULAR Hx Cardio Disorders: Yes Hx Hypertension: Yes Hx Palpitations: Yes - NEURO Hx Neuro Disorders: Yes Hx Dizziness: Yes - GI Hx GI Disorders: Yes Hx Abdominal Pain: Yes (left side) Hx Liver Disease: Yes Comment:: vomitted large amount of blood about 1 yr ago (ER visit) - Hx Genitourinary Disorders: No - ENDOCRINE Hx Endocrine Disorders: No - MUSCULOSKELETAL Hx Musculoskeletal Disorders: No - PSYCH Hx Psych Problems: Yes Hx Anxiety: Yes Hx Depression: Yes - HEMATOLOGY/ONCOLOGY Hx Hematology/Oncology Disorders: No Family Medical History Hx Heart Disease: Father, Grandparents Hx Seizures: Father Physical Exam - General General Appearance: Alert, Oriented x3, Cooperative, No acute distress Limitations: No limitations - Head Head exam: Atraumatic, Normal inspection - Eye Eye exam: Normal appearance - ENT ENT exam: Normal exam, Mucous membranes moist Ear exam: Normal external inspection Nasal Exam: Normal inspection Mouth exam: Normal external inspection - Neck Neck exam: Normal inspection - Cardiovascular Cardiovascular Exam: Normal rhythm, Tachycardia Peripheral Pulses: 2+: Radial (L) - Extremities Extremities exam: Joint swelling, Normal capillary refill, Tenderness. negative: Normal inspection, Full ROM Image of Full Body: 1 - mild swelling, 7mm laceration, pain with ROM, no deformity 2 - tender to palpation, normal inspection, sensation distally intact, radial pulse intact - Back Back exam: Reports: Full ROM. Denies: CVA tenderness (R), CVA tenderness (L), Muscle spasm, Paraspinal tenderness, Tenderness, Vertebral tenderness - Neurological Neurological exam: Alert, Oriented X3 - Psychiatric Psychiatric exam: Normal affect, Normal mood - Skin Skin exam: Dry, Intact, Normal color, Warm Course Vital Signs 04/09/19 19:55 Temperature 97.9 F Pulse Rate [ 118 H Pulse Ox Probe] Respiratory 18 Rate Blood Pressure 108/81 [Right Arm] Pulse Ox 97 - Reevaluation(s) Reevaluation #1: 04/09/19 21:05 Procedure: Elbow laceration 0.7 cm laceration of the left elbow Wound was cleaned and prepped in sterile fashion, no residual FB identified on examination. The wound was copiously irrigated with NS Wound was anesthetized with 2 mL of 1% Lidocaine with epinephrine The laceration was repaired with Prolene 4-0 sutures in interrupted fashion. 2 Sutures placed Patient tolerated the procedure well without complications. We discussed home care, reasons for immediate return if any concerns, and suture removal in 7 days 04/09/19 21:07 The XR's of the wrist and elbow were reviewed No displaced fracture or dislocation I recommended ice, elevate, sling for comfort Off work tomorrow Return in 7 days for suture removal Follow up 1-2 weeks to recheck the joints if pain continues We discussed signs and symptoms of infection and reasons to return to the ED Disposition Disposition: Discharge Clinical Impression: Elbow contusion Qualifiers: Encounter type: initial encounter Laterality: left Qualified Code(s): S50.02XA - Contusion of left elbow, initial encounter Wrist sprain Qualifiers: Encounter type: initial encounter Laterality: left Qualified Code(s): S63.502A - Unspecified sprain of left wrist, initial encounter Disposition: Home, Self-Care Condition: (1) Good Instructions: Laceration (ED), Elbow Sprain (ED), Wrist Sprain (ED) Additional Instructions: Ice the elbow and use the sling for comfort Return if the elbow develops warmth, redness, pus or signs of infection or any other concerns Call your doctor for close follow of the injuries to recheck them this week Prescriptions: Cephalexin [Keflex] 500 mg PO TID #21 cap Forms: Patient Portal Access Time of Disposition: 21:09 Quality - Quality Measures Quality Measures: N/A - Blood Pressure Screening Does Patient Have Any of the Following: No Blood Pressure Classification: Pre-Hypertensive BP Reading Systolic Measurement: 108 Diastolic Measurement: 81 Screening for High Blood Pressure: < Pre-Hypertensive BP, F/U Documented > [G8950] Pre-Hypertensive Follow-up Interventions: Referral to alternative/primary care provider.
--- NOTE | 2019-04-11 00:31 | RADIOLOGY REPORT ---
EXAM: ELBOW, LEFT 3 VIEWS HISTORY: FALL, LEFT ELBOW PAIN. TECHNIQUE: Four views. COMPARISON: None. FINDINGS: No bone or joint abnormality identified. No fracture is seen. Joint spaces are well maintained. No joint effusion. IMPRESSION: UNREMARKABLE LEFT ELBOW. JOB NUMBER: [id number] MTDD
--- NOTE | 2019-04-11 00:33 | RADIOLOGY REPORT ---
EXAM: WRIST, LEFT 3 VIEWS HISTORY: INJURY. TECHNIQUE: Three views. COMPARISON: None. FINDINGS: No bone or joint abnormality identified. No fracture is seen. The joint spaces are well maintained. IMPRESSION: UNREMARKABLE LEFT WRIST. JOB NUMBER: [id number] MTDD
== END 2019-04-09 21:41 | disposition home or self-care (01) ==
LOC: ER 19:48
DX: S63.502A Unspecified sprain of left wrist, initial encounter (principal); S40.012A Contusion of left shoulder, initial encounter; W18.39XA Other fall on same level, initial encounter; Y93.89 Activity, other specified; Y92.012 Bathroom of single-family (private) house as the place of occurrence of the external cause; F12.90 Cannabis use, unspecified, uncomplicated
CPT/HCPCS: 90715; 96372; 99283; 99284

== ENCOUNTER 2019-08-25 05:36 | Inpatient (IN) | payer SELFPAY ==
[2019-08-25] MEDS ORDERED: ONDANSETRON HCL IV 4 MG/2 ML VIAL IVP ONE (05:37)
[2019-08-25] MEDS ORDERED: LORAZEPAM 2 MG/ML VIAL IV ONE (05:43)
[2019-08-25] MEDS ORDERED: 0.9 % SODIUM CHLORIDE 1000ML 1,000 ML IV SCH (05:45)
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
[2019-08-25 06:10] LABS: ABSOLUTE NEUTROPHIL COUNT 3.73; BASO % 0.7 % (0-6); GRAN % 53.5 % (47-80); HEMOGLOBIN 16.4 gm/dl (14.0-18.0); LYMPH % 34.9 % (16-45); MEAN CELL VOLUME 90.6 fl (81-97); MEAN CORPUSCULAR HEMOGLOBIN 30.9 pg (27-33); MEAN CORPUSCULAR HGB CONC 34.2 g/dl (32-36); MONO % 8.9 % (0-9); PLATELET COUNT 235 K/uL (130-400); RED CELL DISTRIBUTION WIDTH 13.2 % (11.5-14.5)
[2019-08-25 06:17] LABS: BLOOD UREA NITROGEN 3 mg/dL (6-20); CREATININE 0.6 mg/dL (0.7-1.2); EST GLOMERULAR FILTRATION RATE > 60 mL/min
[2019-08-25 06:18] LABS: LIPASE 59 U/L (13-60); TOTAL PROTEIN 7.3 g/dL (6.6-8.7)
[2019-08-25 06:20] LABS: GLUCOSE,RANDOM 152 mg/dL (74-109)
[2019-08-25 06:22] LABS: ALB/GLOB RATIO 1.6 (1.1-1.8); ALBUMIN 4.5 g/dL (4.0-5.0); ALCOHOL 0.116 g/dL (0-0.010); ALT/SGPT 296 U/L (<41); AST/SGOT 415 U/L (10.0-50.0)
[2019-08-25 06:23] LABS: ALKALINE PHOSPHATASE 155 U/L (40-129)
[2019-08-25] MEDS ORDERED: ONDANSETRON HCL IV 4 MG/2 ML VIAL IVP PRN (07:34)
[2019-08-25] MEDS: LORAZEPAM 2 MG/ML VIAL IV PRN ×3 (07:48→20:23)
[2019-08-25] MEDS: 0.9 % SODIUM CHLORIDE 1000ML 1,000 ML IV PRN ×2 (07:48→15:34)
[2019-08-25] MEDS: METOCLOPRAMIDE HCL 10 MG/2 ML VIAL IVP PRN ×2 (08:01→20:29)
[2019-08-25] MEDS ORDERED: DIPHENHYDRAMINE HCL 50 MG/ML VIAL IVP PRN (08:35)
[2019-08-25] MEDS ORDERED: FLU VAC QS 2019-20 (INPT, 6MO+) 60MCG/0.5ML IM ONE (09:29)
[2019-08-25] MEDS: FOLIC ACID 1 MG TABLET PO SCH (10:37)
[2019-08-25] MEDS: DIAZEPAM 5 MG TABLET PO PRN ×3 (10:38→20:48)
[2019-08-25] MEDS: CYANOCOBALAMIN (VITAMIN B-12) 100 MCG TABLET PO SCH (10:38)
[2019-08-25] MEDS: THIAMINE MONONITRATE 100 MG TABLET PO SCH (10:38)
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
[2019-08-25] MEDS: PANTOPRAZOLE SODIUM 40 MG TABLET PO SCH (15:33)
[2019-08-25] MEDS ORDERED: METOPROLOL SUCC 25 MG TAB.ER PO SCH (22:00)
[2019-08-25] MEDS ORDERED: PAROXETINE HCL 10 MG TABLET PO SCH (22:00)
[2019-08-25] MEDS ORDERED: QUETIAPINE FUMARATE 100 MG TABLET PO SCH (22:00)
[2019-08-26] MEDS: 0.9 % SODIUM CHLORIDE 1000ML 1,000 ML IV PRN ×3 (00:13→15:54)
[2019-08-26] MEDS: DIAZEPAM 5 MG TABLET PO PRN ×3 (00:13→06:18)
[2019-08-26] MEDS: PANTOPRAZOLE SODIUM 40 MG TABLET PO SCH (06:18)
[2019-08-26] MEDS: LORAZEPAM 2 MG/ML VIAL IV PRN (08:35)
[2019-08-26] MEDS ORDERED: LORAZEPAM 2 MG/ML VIAL IV PRN ×2 (09:02→09:08)
[2019-08-26 09:14] LABS: ABSOLUTE NEUTROPHIL COUNT 2.43; BASO % 0.4 % (0-6); EOS % 2.3 % (0-6); GRAN % 51.7 % (47-80); HEMATOCRIT 44.6 % (42.0-52.0); HEMOGLOBIN 14.8 gm/dl (14.0-18.0); MEAN CELL VOLUME 92.9 fl (81-97); MEAN CORPUSCULAR HEMOGLOBIN 30.8 pg (27-33); MEAN CORPUSCULAR HGB CONC 33.2 g/dl (32-36); MEAN PLATELET VOLUME 9.9 fl (7.4-10.4); MONO % 9.6 % (0-9); PLATELET COUNT 163 K/uL (130-400); RED CELL DISTRIBUTION WIDTH 12.8 % (11.5-14.5); WHITE BLOOD COUNT W/O DIFF 4.7 K/uL (4.2-12.2)
[2019-08-26] MEDS: CHLORDIAZEPOXIDE 25 MG CAPSULE PO SCH ×3 (09:29→18:03)
[2019-08-26] MEDS: THIAMINE MONONITRATE 100 MG TABLET PO SCH (09:30)
[2019-08-26] MEDS: CYANOCOBALAMIN (VITAMIN B-12) 100 MCG TABLET PO SCH (09:30)
[2019-08-26] MEDS: FOLIC ACID 1 MG TABLET PO SCH (09:32)
[2019-08-26] MEDS ORDERED: ENOXAPARIN 40 MG/0.4 ML SYR SQ SCH (10:00)
[2019-08-26] MEDS ORDERED: MULTIVITAMINS/MINERALS TABLET PO SCH (10:00)
[2019-08-26] MEDS ORDERED: MAGNESIUM OXIDE 400 MG TABLET PO SCH (11:30)
--- NOTE | 2019-08-26 12:36 | Physician Progress Note ---
Subjective - Date Date of Physician Progress Note: 08/26/19 - Subjective Subjective Comment: 08/26/19: Patient remains A&Ox4. Nursing present upon examination. Patient reports nausea and pain "from my ulcer" with attempt to eat toast this AM. Patient denies history of pancreatitis. Still TTP throughout. Patient updated on POC to include Librium for symptom management. Patient requiring extensive amounts of Valium throughout the night to manage CIWA scores. Food Services Coordinator from [facility] visited patient last evening to discuss ETOH, coping, family, etc. CM/SW to reach out and gather more information. No new nursing concerns. Location: Abdomen Quality: Aching, Dull Consistency: Intermittent Improves with: None Worsens with: Eating Associated symptoms: Nausea/vomiting Objective - Vital Signs Vital Signs: Vital Signs - Last 24 Hrs Temp Pulse Resp BP Pulse Ox 08/26/19 11:16 98.3 F 70 141/94 97 08/26/19 09:00 70 16 08/26/19 07:24 98.0 F 67 16 122/72 95 08/26/19 03:57 97.9 F 67 18 137/82 99 08/26/19 00:00 97.7 F 84 18 133/83 98 08/25/19 20:00 98.3 F 77 20 135/91 97 08/25/19 19:09 12 - General General Appearance: Alert, Oriented x3, Cooperative, Mild distress, Other (Remains tremulous on examination) Limitations: No limitations - Head Head exam: Atraumatic, Normocephalic, Normal inspection - Eye Eye exam: Normal appearance - Neck Neck exam: Normal inspection - Respiratory Respiratory exam: Normal lung sounds bilaterally. negative: Rales, Respiratory distress, Rhonchi, Stridor - Cardiovascular Cardiovascular Exam: Regular rate, Normal rhythm, Normal heart sounds Peripheral Pulses: 2+: Dorsalis Pedis (R), Dorsalis Pedis (L) - GI/Abdominal GI/Abdominal exam: Soft, Normal bowel sounds, Tenderness (epigastric > generalized). negative: Rebound, Rigid - Rectal Rectal exam: Deferred - exam: Deferred - Extremities Extremities exam: Normal inspection. negative: Pedal edema - Back Back exam: Reports: Normal inspection, Full ROM. Denies: CVA tenderness (R), CVA tenderness (L) - Neurological Neurological exam: Alert, Oriented X3 - Psychiatric Psychiatric exam: Anxious - Skin Skin exam: Dry, Intact, Normal color Type of lesion: negative: abrasion Assessment and Plan - Assessment and Plan (1) Alcohol withdrawal Current Visit: Yes Status: Acute Qualifiers: Complication of substance-induced condition: uncomplicated Qualified Code(s): F10.230 - Alcohol dependence with withdrawal, uncomplicated Base Code: F10.239 - ALCOHOL DEPENDENCE WITH WITHDRAWAL, UNSPECIFIED Comment: 08/26/19 -Drinks two fifths hard liquor daily, history of alcohol abuse was "in remission". Pt admitted to [facility] 1 month ago for same. Trying to wean himself off for past 2-3 days p/pt. -ETOH elevated at 0.116 in ER -Lipase 59 >> 175 -Magnesium 1.2, ordered oral replacement -Liver enzymes elevated, AST 415/ALT 296 will repeat in AM -CIWA assessment ordered q4h, steady at 14-21 with assessments -Librium 100mg taper over 4 days ordered (QID, TID, BID, QD) to begin today -Seizure precautions in place -Telemetry ordered -Ativan & Valium Q2H PRN per CIWA score, parameters adjusted for nursing -Vitamins B12, B1, Folic Acid (x3 days only), and MVI ordered Daily -IV NS 125 ml/hr -Tolerating PO fluids -Regular diet, advance as tolerated, remains nauseated and painful from GI ulcer, protonix ordered -Moderate nausea p/pt Zofran, Reglan, and Benadryl ordered -CM/SW working on detox resources -Patient had visitor from [facility] last evening to discuss detox, CM/SW to gather more information about visit (2) Nausea & vomiting Current Visit: Yes Status: Acute Qualifiers: Vomiting type: unspecified Vomiting Intractability: non-intractable Qualified Code(s): R11.2 - Nausea with vomiting, unspecified Base Code: R11.2 - NAUSEA WITH VOMITING, UNSPECIFIED Comment: 08/26/19 -Intractable nausea while in ER despite receiving Zofran 4mg IVP as well as MS floor another 4mg Zofran IVP -1L NS Bolus given in ER, NS 125ml/hr currently infusing -PRN Zofran, Benadryl and Reglan ordered -Regular diet, advance as tolerated, still nauseated and painful with oral intake -Reported hematemesis prior to going to ER, unwitnessed, no vomiting since admission (3) Abdominal pain Current Visit: No Status: Acute Qualifiers: Abdominal location: epigastric Qualified Code(s): R10.13 - Epigastric pain Base Code: R10.9 - UNSPECIFIED ABDOMINAL PAIN Comment: 08/26/19: - Epigastric pain, TTP, hx of ulcers - Denies history of pancreatitis - Lipase 59 >> 175 - AST 415, ALT 296 on admission - Tolerating PO liquids - Regular diet, advance as tolerated, still painful/nauseous with oral intake - Antiemetics ordered PRN - IV NS 125 ml/hr - Protonix ordered, takes Omeprazole at home (4) DVT prophylaxis Current Visit: No Status: Acute Base Code: [id number] - Comment: 08/26/19: -Nursing to encourage ambulation -Lovenox 40mg SQ daily (5) Full code status Current Visit: No Status: Acute Base Code: Z78.9 - OTHER SPECIFIED HEALTH STATUS Comment: 08/26/19: -Full code this admission Results - Labs Result Diagrams: 08/26/19 09:10 08/25/19 06:00 Labs Last 24 Hours: Laboratory Results - last 24 hr 08/26/19 08/26/19 09:10 09:10 WBC 4.7 RBC 4.80 Hgb 14.8 Hct 44.6 MCV 92.9 MCH 30.8 MCHC 33.2 RDW 12.8 Plt Count 163 MPV 9.9 Gran % 51.7 Lymphocytes % 36.0 Monocytes % 9.6 H Eosinophils % 2.3 Basophils % 0.4 Absolute Neutrophils 2.43 Magnesium 1.2 L Amylase 61 Lipase 175 H DVT/PE Assessment - Risk for VTE Risk for VTE: Yes Risk Level: Low Risk Assessment Date: 08/25/19 Risk Assessment Time: 11:59 VTE Orders Placed or Will Be Placed: Yes - Active Medicaitons Current Medications: Current Medications Chlordiazepoxide HCl (Librium) 100 mg PO QID [facility] Stop: 08/26/19 22:01 Last Admin: 08/26/19 09:29 Dose: 100 mg Documented by: Chlordiazepoxide HCl (Librium) 100 mg PO TID [facility] Stop: 08/27/19 22:01 Chlordiazepoxide HCl (Librium) 100 mg PO BID [facility] Stop: 08/28/19 22:01 Chlordiazepoxide HCl (Librium) 100 mg PO DAILY [facility] Stop: 08/29/19 10:01 Cyanocobalamin (Vitamin B-12) 100 mcg PO DAILY [facility] Stop: 08/28/19 10:31 Last Admin: 08/26/19 09:30 Dose: 100 mcg Documented by: Diazepam (Valium) 5 mg PO Q2H PRN PRN Reason: ALCOHOL WITHDRAWAL Last Admin: 08/26/19 06:18 Dose: 5 mg Documented by: Diazepam (Valium) 10 mg PO Q1H PRN PRN Reason: ALCOHOL WITHDRAWAL Last Admin: 08/25/19 20:48 Dose: 10 mg Documented by: Diphenhydramine HCl (Benadryl) 12.5 mg IVP Q6H PRN PRN Reason: NAUSEA Enoxaparin Sodium (Lovenox) 40 mg SQ DAILY [facility] Last Admin: 08/26/19 09:30 Dose: 40 mg Documented by: Folic Acid () 1 mg PO DAILY [facility] Stop: 08/28/19 10:31 Last Admin: 08/26/19 09:32 Dose: 1 mg Documented by: Sodium Chloride () 1,000 mls @ 0 mls/hr IV .Q0M [facility] Last Infusion: 08/26/19 08:14 Dose: Infused Documented by: Sodium Chloride () 1,000 mls @ 125 mls/hr IV .Q8H PRN PRN Reason: LARGE VOLUME IV Last Admin: 08/26/19 08:13 Dose: 125 mls/hr Documented by: Lorazepam (Ativan) 1 mg IV Q2H PRN PRN Reason: ALCOHOL WITHDRAWAL Lorazepam (Ativan) 2 mg IV Q1H PRN PRN Reason: ALCOHOL WITHDRAWAL Magnesium Oxide (Mag Ox) 400 mg PO DAILY [facility] Metoclopramide HCl (Reglan) 10 mg IVP Q6H PRN PRN Reason: NAUSEA Last Admin: 08/25/19 20:29 Dose: 10 mg Documented by: Metoprolol Succinate (Toprol Xl) 25 mg PO QHS [facility] Last Admin: 08/25/19 22:11 Dose: 25 mg Documented by: Multivitamins/Minerals (Centrum) 1 tab PO DAILY [facility] Last Admin: 08/26/19 09:31 Dose: 1 tab Documented by: Ondansetron HCl (Zofran) 4 mg IVP Q6H PRN PRN Reason: NAUSEA Pantoprazole Sodium (Protonix) 40 mg PO DAILYAC [facility] Last Admin: 08/26/19 06:18 Dose: 40 mg Documented by: Paroxetine HCl (Paxil) 20 mg PO QHS [facility] Last Admin: 08/25/19 22:11 Dose: 20 mg Documented by: Quetiapine Fumarate (Seroquel) 100 mg PO QHS [facility] Last Admin: 08/25/19 22:11 Dose: 100 mg Documented by: AMI Plan - Labs Result Diagrams: 08/26/19 09:10 08/25/19 06:00
[2019-08-26] MEDS ORDERED: MAGNESIUM HYDROXIDE PO PRN ×2 (15:56)
[2019-08-26] MEDS ORDERED: LIDOCAINE 2% PO PRN ×2 (15:56)
[2019-08-26] MEDS ORDERED: ALUMINUM HYDROXIDE PO PRN ×2 (15:56)
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
[2019-08-27] MEDS ORDERED: CHLORDIAZEPOXIDE 25 MG CAPSULE PO SCH (10:00)
[2019-08-28] MEDS ORDERED: CHLORDIAZEPOXIDE 25 MG CAPSULE PO SCH (10:00)
[2019-08-29] MEDS ORDERED: CHLORDIAZEPOXIDE 25 MG CAPSULE PO SCH (10:00)
== END 2019-08-26 19:00 | disposition left against medical advice (07) | DRG 894 ==
LOC: ER 05:36 → MEDSURG 07:08 → OBSVTOIN 07:08
PROVIDERS: ADMIT Internal Medicine; ATTEND Internal Medicine
DX: F10.230 Alcohol dependence with withdrawal, uncomplicated (principal); R11.2 Nausea with vomiting, unspecified; R10.84 Generalized abdominal pain; Z53.29 Procedure and treatment not carried out because of patient's decision for other reasons; K76.9 Liver disease, unspecified; Z87.19 Personal history of other diseases of the digestive system; F31.9 Bipolar disorder, unspecified; Z87.891 Personal history of nicotine dependence; Z23 Encounter for immunization
CPT/HCPCS: 80053; 80320; 82150; 83690; 83735; 85025; 96374; 99223; 99239; 99285; J1650; J2405; J2765; J7030